=== PATIENT | female | born 1940 | race Caucasian/White ===

== ENCOUNTER → 2016-11-07 | Outpatient (CLI) | payer MEDICARE, BC | END | disposition home or self-care (01) | LOC: RAD.S 10:12 | DX: Z12.31 Encounter for screening mammogram for malignant neoplasm of breast (principal); N63 Unspecified lump in breast ==

== ENCOUNTER → 2016-11-12 | Outpatient (CLI) | payer MEDICARE, BC | END | disposition home or self-care (01) | LOC: RAD.S 11-08 07:38 | DX: R92.8 Other abnormal and inconclusive findings on diagnostic imaging of breast (principal); N60.12 Diffuse cystic mastopathy of left breast ==

== ENCOUNTER → 2016-12-21 | Outpatient (CLI) | payer MEDICARE, BC | END | disposition home or self-care (01) | LOC: RAD.S 12-18 15:22 | DX: K43.9 Ventral hernia without obstruction or gangrene (principal); K46.9 Unspecified abdominal hernia without obstruction or gangrene; K76.89 Other specified diseases of liver; M43.16 Spondylolisthesis, lumbar region ==

== ENCOUNTER 2017-01-29 08:01 | Day surgery (SDC) | payer MEDICARE, BC ==
[~2017-01-29] VITALS: Ht 162.6 cm
--- NOTE | 2017-02-03 07:54 | OR ---
ADMIT: 01/29/2017 RM/LOC: [facility] MR#: [id number] [id number] [place] [address] Operative/Delivery Room Report SEX: F AGE: 76 : 1940 SURGERY DATE: 01/29/2017 SURGEON: Andreas Canales MD PREOPERATIVE DIAGNOSIS: Incarcerated ventral hernia in the epigastrium. POSTOPERATIVE DIAGNOSIS: Incarcerated ventral hernia in the epigastrium. PROCEDURE: Repair of incarcerated ventral hernia in the epigastrium with 6.4 cm Ventralex mesh. ANESTHESIA: General. ESTIMATED BLOOD LOSS: 10 mL. DESCRIPTION OF PROCEDURE: The patient was taken to the operating room and placed supine on the operating room table. General anesthesia was established. The abdomen was prepped and draped in the standard surgical fashion. Vertical incision was made through the prior scar overlying the hernia. Dissection proceeded through the subcutaneous tissue to the hernia sac. The hernia sac was carefully dissected back to the fascial margins and excised circumferentially. This was excised from underlying incarcerated omentum and sent as specimen. Adhesions to the fascial edge were freed with cautery. The omentum was then reduced intra-abdominally. The defect measured 1.5 cm in diameter. A 6.4 cm Ventralex mesh was placed intraabdominally with good overlap of the defect. This was secured in circumferential manner with 0 silk transfascial sutures. This provided good overlap with no tension on the repair. The deep tissue in the subcutaneous space was closed with 2-0 Vicryl suture. Skin edges were approximated with yue. Local anesthetic was injected and a dressing was applied. Sponge, needle, and instrument counts were correct at the end of the case. The patient tolerated the procedure well and transferred to the recovery area in stable condition. Andreas Canales MD/ fabian JOB #: [id number] CC: Andreas Canales, Attending Physician Hamilton Fields, Family Physician
== END 2017-01-29 14:20 | disposition home or self-care (01) ==
LOC: SSS 08:01
PROC: 0WUF0JZ Supplement Abdominal Wall with Synthetic Substitute, Open Approach (ICD-10-PCS; principal; 2017-01-29)
DX: K43.6 Other and unspecified ventral hernia with obstruction, without gangrene (principal); J44.9 Chronic obstructive pulmonary disease, unspecified; Z87.19 Personal history of other diseases of the digestive system; Z88.8 Allergy status to other drugs, medicaments and biological substances; Z98.890 Other specified postprocedural states

== ENCOUNTER → 2017-05-15 | Outpatient (CLI) | payer MEDICARE, BC | END | disposition home or self-care (01) | LOC: RAD.S 11-15 08:50 | DX: N60.09 Solitary cyst of unspecified breast (principal) ==